=== PATIENT | female | born 1955 | race Caucasian/White ===

== ENCOUNTER 2018-09-28 09:57 | Inpatient (IN) | payer OTHER ==
[2018-09-28] VITALS (8 sets, daily range): BP systolic 108–142; BP diastolic 67–86
[~2018-09-28] VITALS: Ht 175.3 cm; Wt 104.6 kg
--- NOTE | ~2018-09-28 | EKG ---
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[place] : 1955 Requested By: Los Booker Order Number: [id number] MD: Jose De Jesus Cesar Measurements Intervals [place] Rate: 67 P: 28 [place]: 180 QRS: 3 QRSD: 92 T: 34 QT: 405 QTc: 428 Interpretive Statements Sinus rhythm Anterior infarct, old Compared to ECG 03/12/2013 21:16:35 No significant changes Electronically Signed On 09-29-2018 8:42:35 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
--- NOTE | ~2018-09-28 | CATHLAB ---
[facility] [address] [place] [address] INVASIVE PROCEDURE REPORT Name: RAMON GALVEZ Room #: 349-I [facility] IN [facility]#: [id number] Admission: 09/28/18 Attend Phys: Gregor Montez MD Discharge: 09/30/18 Date of : 59 Date of Service: 10/02/18 1230 Report #: [id number] THIS REPORT FOR: //name// APPROVED REPORT Study performed: 09/29/2018 17:04:04 Patient Details Patient Status: In-Patient Room #: The patient is a 62 year-old female Event Personnel Martin Antoine News Photographer, Silvia Merida RN RN, Hillary Best Monitor, Marguerite Cross RTR, [employer] DIRECTOR Scrub Procedures Performed Art Access - R femoral artery* [id number] Initial Mod Sed Same Phys/QHP Gr5y [id number] Left Heart Cath w/or w/o Coronaries [id number] [facility] Hemostasis w/ Mynx supervision of conscious sedation Indication Chest pain Procedure Narrative The patient was brought urgently to the Cardiac Catheterization Laboratory and was prepped and draped in a sterile manner. The Right Groin^ was infiltrated with 1% Lidocaine subcutaneous anesthesia. A PINNACLE 4FR Sheath #[id number] sheath was inserted into the RFA^. Coronary angiography was performed using coronary diagnostic catheters. The right coronary system was accessed and visualized with a JR 4 catheter. The left coronary system was accessed and visualized with a JL 4 catheter. The left ventricle was accessed and visualized with a Pigtail catheter. Left ventricular/Aortic Valve gradient assessed via catheter pullback. Hemostasis was obtained with manual pressure following sheath removal without any complications. The patient tolerated the procedure well and there were no complications associated with the procedure. There was no hematoma. Intraoperative Conscious Sedation Sedation start time: 17:36 Case end Time: 18:02 Versed 2 mg Fluoro Time: 1.30 minutes [facility] [place] [address] INVASIVE PROCEDURE REPORT Name: LEONOR,RAMON Richard Room #: 349-I [facility] IN [facility]#: [id number] Admission: 09/28/18 Attend Phys: Gregor Montez MD Discharge: 09/30/18 Date of : 59 Date of Service: 10/02/18 1230 Report #: [id number] Dose: DAP 2725.00 cGycm2 384 mGy Contrast Type and Amount: Omnipaque 45 ml Coronary Angiography The patient's coronary anatomy is right dominant. Diagnostic Cath Left Main Normal origin and caliber with an early rising small circumflex. It is free of high-grade disease LAD Moderate to large caliber type II vessel which courses in the anterior interventricular sulcus giving rise to a small first diagonal branch which is free of high-grade disease. Vessel and continues on in the AV groove giving rise to a second diagonal branch as it terminates at the apex as a tapering vessel no high-grade lesions are noted Diagonal 1 Small-caliber vessel without significant obstructive lesions Diagonal 2 Small-caliber vessel without significant obstructive lesions Circumflex Small insignificant caliber vessel which bifurcates into even smaller 2 branches prior to proceeding posteriorly along the left ventricular wall Right Coronary Large-caliber dominant vessel of normal origin which courses in the AV groove giving rise to a series of small hair-like RV marginal branches. And continues to the crux of the heart gives a moderate caliber posterior descending artery and terminates is a moderate caliber posterior wall branches and artery to the AV node noted R PDA Moderate caliber long vessel coursing towards the apex free of high-grade disease Left Ventriculography Left Ventriculography was not performed. Hemodynamics The aortic pressure is 145/82 mmHg with a mean of 108 mmHg. The left ventricular pressure is 159/14 mmHg with a mean of mmHg. The left ventricular end diastolic pressure is 33 mmHg. Conclusion 1. Normal coronary artery 2. Normal hemodynamics [facility] [address] [place] [address] INVASIVE PROCEDURE REPORT Name: RAMON GALVEZ Room #: 349-I [facility] IN .R.#: [id number] Admission: 09/28/18 Attend Phys: Gregor Montez MD Discharge: 09/30/18 Date of : 59 Date of Service: 10/02/18 1230 Report #: [id number] Recommendations Cardiac Risk Reduction Program <ELECTRONICALLY SIGNED> By: Martin Antoine MD 10/02/18 1230 1230 1230 Martin Antoine MD /INF
--- NOTE | ~2018-09-28 | 2DMMODE ---
[facility] [place] [address] 2 D/M-MODE ECHOCARDIOGRAM Name: LEONORRAMON Richard Room #: 349-I ADM IN ..#: [id number] Admission: 09/28/18 Attend Phys: Gregor Montez MD Discharge: Date of : 59 Date of Service: 09/30/18 1203 Report #: [id number] THIS REPORT FOR: //name// APPROVED REPORT Study performed: 09/30/2018 08:21:26 EXAM: Comprehensive 2D, Doppler, and color-flow Echocardiogram Patient Location: Echo lab Room #: 1 Status: routine BSA: 2.19 HR: 55 bpm BP: 134/71 mmHg Rhythm: NSR Other Information Study Quality: Adequate Technically limited study due to Breast Implants. Risk Factors: Cardiac Risk Factors: HTN, Hyperlipidemia Indications Chest Pain Hypertension/HDD 2D Dimensions RVDd: 39.99 mm IVSd: 11.43 (7-11mm) LVOT Diam: 20.18 (18-24mm) LVDd: 41.22 mm PWd: 11.31 (7-11mm) Ascending Ao: 37.11 (22-36mm) LVDs: 26.22 (25-40mm) Aortic Root: 32.88 mm Volumes Left Atrial Volume (Systole) Single Plane 4CH: 73.12 mL Single Plane 2CH: 52.26 mL Aortic Valve AoV Peak Robbie.: 1.31 m/s AO Peak Gr.: 6.86 mmHg LVOT Max P.89 mmHg LVOT Max V: 1.11 m/s SOLEDAD Vmax: 2.70 cm2 [facility] [address] [place] [address] 2 D/M-MODE ECHOCARDIOGRAM Name: RAMON GALVEZ Room #: 349-I ADM IN [facility]#: [id number] Admission: 09/28/18 Attend Phys: Gregor Montez MD Discharge: Date of : 59 Date of Service: 09/30/18 1203 Report #: [id number] Mitral Valve E/A Ratio: 0.8 MV Decel. Time: 311.56 ms MV E Max Robbie.: 0.74 m/s MV A Robbie.: 0.95 m/s MV PHT: 90.35 ms IVRT: 73.82 ms Pulmonary Valve PV Peak Robbie.: 0.90 m/s PV Peak Gr.: 3.21 mmHg Pulmonary Vein P Vein S: 0.37 m/s P Vein A: 0.30 m/s P Vein D: 0.31 m/s P Vein A Dur.: 147.6 msec P Vein S/D Ratio: 1.19 Tricuspid Valve RAP Estimate: 5.00 mmHg Left Ventricle The left ventricle is normal size. There is normal LV segmental wall motion. There is normal left ventricular wall thickness. The left ventricular systolic function is normal. LVEF is 55-60%. Grade I - abnormal relaxation pattern. Right Ventricle The right ventricle is normal size. The right ventricular systolic function is normal. Atria The left atrium size is normal. The right atrium size is normal. Aortic Valve The aortic valve is grossly normal in structure. Trace aortic regurgitation. There is no aortic valvular stenosis. Mitral Valve The mitral valve is normal in structure. Trace mitral regurgitation. No evidence of mitral valve stenosis. Tricuspid Valve The tricuspid valve is normal in structure. There is no tricuspid valve regurgitation noted. Unable to assess PA pressure. Pulmonic Valve [facility] [address] [place] [address] 2 D/M-MODE ECHOCARDIOGRAM Name: RAMON GALVEZ Room #: 349-I ADM IN .R.#: [id number] Admission: 09/28/18 Attend Phys: Gregor Montez MD Discharge: Date of : 59 Date of Service: 09/30/18 1203 Report #: [id number] Pulmonic valve is not well visualized. Trace pulmonic regurgitation. Great Vessels The aortic root is normal in size. The ascending aorta is normal in size. IVC is normal in size and collapses >50% with inspiration. Pericardium There is no pericardial effusion. <Conclusion> The left ventricle is normal size. LVEF is 55-60%. The right ventricle is normal size. The right ventricular systolic function is normal. The right atrium size is normal. The aortic valve is grossly normal in structure. Trace aortic regurgitation. The mitral valve is normal in structure. Trace mitral regurgitation. The tricuspid valve is normal in structure. There is no tricuspid valve regurgitation noted. Unable to assess PA pressure. Pulmonic valve is not well visualized. Trace pulmonic regurgitation. There is no pericardial effusion. <ELECTRONICALLY SIGNED> By: Martin Antoine MD 09/30/181202 02 02 Martin Antoine MD /INF
[~2018-09-28 09:57] MED LIST: ADVIL100 M2 PO; COZAAR 50 MG TA50 M1 PO; DIGESTIVE ENZY1 EAC3 PO; HYDROCHLOROTH12.5 MG PO; MULTI VITAMIN1 EACH PO; SYNTHROID112 MCG PO; VITAMIN D31000 UNI2 PO; ZOFRAN ODT4 MG PO
[2018-09-28] MEDS ORDERED: AVAPRO 150 MG150 M1 PO (10:29)
[2018-09-28] MEDS ORDERED: PRILOSEC 20 MG20 MG PO (10:29)
[2018-09-28 11:03] LABS: ABSOLUTE NEUTROPHILS 2.9 thou/uL (1.4-8.2); BASOPHILS 0.5 % (0.0-2.0); EOSINOPHILS 2.6 % (0.0-3.0); HEMATOCRIT 38.7 % (37.0-47.0); HEMOGLOBIN 13.4 gm/dL (12.0-15.0); LYMPHOCYTES 25.9 % (24.0-44.0); MCH 30.5 pg (26.0-34.0); MCHC 34.6 g/dL (28.0-37.0); MCV 88.1 fL (80.0-100.0); MONOCYTES 5.4 % (1.0-8.0); PLATELET COUNT 300 thou/uL (150-400); POLYS 65.6 % (36.0-66.0); RBC 4.39 mil/uL (4.20-5.00); RDW 12.5 % (10.5-14.5); WBC 4.4 thou/uL (4.0-11.0)
[2018-09-28 11:11] LABS: ANION GAP 4 mmol/L (7-16); BUN 14 mg/dL (7-18); CALCIUM 9.7 mg/dL (8.5-10.1); CHLORIDE 106 mmol/L (98-107); CO2 30 mmol/L (21-32); GLUCOSE 99 mg/dL (74-106); SODIUM 140 mmol/L (136-145)
[2018-09-28 11:20] LABS: LIPASE 212 U/L (73-393); TROPONIN-I <0.06 ng/mL (<0.06)
[2018-09-29] VITALS (14 sets, daily range): BP systolic 87–137; BP diastolic 57–80
[2018-09-29 06:01] LABS: CHOLESTEROL 265 mg/dL (<200); HDL CHOLESTEROL 83 mg/dL (>40); LDL CHOLESTEROL 164 mg/dL (<100); TC:HDL 3.2 Ratio (Not establshd); TRIGLYCERIDE 93 mg/dL (<150); VLDL 19 mg/dL (<40)
[2018-09-29 06:06] LABS: SERUM ASSESSMENT Clear
[2018-09-29 06:36] LABS: ANION GAP 7 mmol/L (7-16); BUN 17 mg/dL (7-18); CALCIUM 9.3 mg/dL (8.5-10.1); CHLORIDE 104 mmol/L (98-107); CO2 29 mmol/L (21-32); GLUCOSE 101 mg/dL (74-106); MAGNESIUM 2.3 mg/dL (1.8-2.4); POTASSIUM 3.5 mmol/L (3.5-5.1); SODIUM 140 mmol/L (136-145); TROPONIN-I <0.06 ng/mL (<0.06)
[2018-09-30 00:03] VITALS: BP 133/85
[2018-09-30 05:15] VITALS: BP 134/71
[2018-09-30 06:20] LABS: ABSOLUTE NEUTROPHILS 4.4 thou/uL (1.4-8.2); BASOPHILS 0.7 % (0.0-2.0); EOSINOPHILS 2.5 % (0.0-3.0); HEMATOCRIT 36.9 % (37.0-47.0); HEMOGLOBIN 12.4 gm/dL (12.0-15.0); LYMPHOCYTES 22.7 % (24.0-44.0); MCH 29.9 pg (26.0-34.0); MCHC 33.5 g/dL (28.0-37.0); MCV 89.1 fL (80.0-100.0); MONOCYTES 5.5 % (1.0-8.0); PLATELET COUNT 288 thou/uL (150-400); POLYS 68.6 % (36.0-66.0); RBC 4.15 mil/uL (4.20-5.00); RDW 12.5 % (10.5-14.5); WBC 6.3 thou/uL (4.0-11.0)
[2018-09-30 06:37] LABS: CALCIUM 8.7 mg/dL (8.5-10.1); CREATININE 1.1 mg/dL (0.6-1.0); POTASSIUM 3.8 mmol/L (3.5-5.1)
[2018-09-30 07:31] VITALS: BP 140/76
[2018-09-30] MEDS ORDERED: CELEBREX100 MG/1 C PO (12:24)
[2018-09-30 12:55] VITALS: BP 140/76
== END 2018-09-30 13:21 | disposition home or self-care (01) | DRG 287 ==
LOC: ER 09:57 → 3W 11:49 → EROBS 11:49 → 3W 14:02 → ENTRNSPT 09-30 13:13 → EDTRNSPTSTS 09-30 13:15 → 3W 09-30 13:21
PROVIDERS: Emergency Medicine; Hospitalist; Nurse Practitioner
PROC: B2111ZZ Fluoroscopy of Multiple Coronary Arteries using Low Osmolar Contrast (ICD-10-PCS; principal; 2018-09-28)
DX: R07.9 Chest pain, unspecified (principal); R00.1 Bradycardia, unspecified; I10 Essential (primary) hypertension; K21.9 Gastro-esophageal reflux disease without esophagitis; E89.0 Postprocedural hypothyroidism; F41.9 Anxiety disorder, unspecified; E78.5 Hyperlipidemia, unspecified; Z85.3 Personal history of malignant neoplasm of breast; Z90.13 Acquired absence of bilateral breasts and nipples; Z90.49 Acquired absence of other specified parts of digestive tract; Z90.710 Acquired absence of both cervix and uterus; Z98.42 Cataract extraction status, left eye; Z98.41 Cataract extraction status, right eye; Z79.899 Other long term (current) drug therapy; Z88.8 Allergy status to other drugs, medicaments and biological substances; Z82.49 Family history of ischemic heart disease and other diseases of the circulatory system
CPT/HCPCS: 10879